=== PATIENT | male | born 1930 | race Caucasian/White ===

== ENCOUNTER 2016-12-19 14:25 | Emergency (ER) | payer MEDICARE ==
[2016-12-19 14:42] VITALS: TEMP 97.8
[2016-12-19] MEDS ORDERED: SODIUM CHLORIDE 0.9% 500 ML 500 ML IV ONE (15:00)
[2016-12-19 15:21] LABS: BASOPHILS % (AUTO) 0 % (0-3); EOSINOPHILS % (AUTO) 0 % (0-9); HEMATOCRIT 45 % (39-53); MEAN CORPUSCULAR HGB CONC 34.2 gm/dl (32.0-36.0); MEAN CORPUSCULAR VOLUME 88 fL (80-100); MONOCYTES % (AUTO) 5.5 % (0-12)
[2016-12-19 15:40] LABS: ALBUMIN 3.3 gm/dl (3.4-5.0); CALCIUM 8.9 mg/dl (8.5-10.1); POTASSIUM 3.6 mMol/L (3.5-5.1)
[2016-12-19] MEDS ORDERED: SODIUM CHLORIDE 0.9% 1000ML 1,000 ML IV ONE (16:04)
[2016-12-19 18:40] VITALS: RESP 20
[2016-12-19 18:41] VITALS: O2SAT 98
[2016-12-19 18:43] VITALS: BP 118/76; PULSE 58
== END 2016-12-19 18:25 | disposition home or self-care (01) | DRG 641 ==
LOC: ED 14:25
DX: E86.0 Dehydration (principal); K44.9 Diaphragmatic hernia without obstruction or gangrene
CPT/HCPCS: 36415; 71020; 80053; 84484; 85025; 93005; 99285